=== PATIENT | male | born 1950 | race Caucasian/White ===

== ENCOUNTER → 2018-06-15 | Outpatient (CLI) | payer MEDICARE, OTHER ==
--- NOTE | 2018-06-15 11:33 | KCIC ---
SMALL BOWEL SERIES History: Lower abdominal pain for 3 months Comparison: None. Findings: Small bowel examination was performed. There was normal transit of contrast through the small bowel, seen in the ascending colon at about 45 minutes. No definitive stricture was identified. No significant abnormality was identified of the terminal ileum. Fluoroscopy time: 1 minute 41 seconds, 3 images Impression: 1. No significant abnormality was identified. Electronically signed by: Armando Gonzales MD (06/15/2018 11:29 AM) [id number]
== END | disposition home or self-care (01) ==
LOC: KCIC 09:23
PROVIDERS: ATTEND Internal Medicine Gastroenterology
DX: R10.30 Lower abdominal pain, unspecified (principal)
CPT/HCPCS: 74250

== ENCOUNTER → 2018-06-22 | Outpatient (CLI) | payer MEDICARE, OTHER ==
[~2018-06-22] MED LIST: CONTRAST GIVEN. MC PRN; IOHEXOL 300 MG/ML 100ML VIAL. IV ONE
--- NOTE | 2018-06-22 10:29 | RAD ---
EXAM: CT Angiogram Abdomen and Pelvis with IV contrast CLINICAL HISTORY: Persistent LLQ PAIN INJ COMPARISON: none TECHNIQUE: Helical CT of the abdomen and pelvis was performed following the administration of intravenous contrast. Oral contrast was administered. Axial, coronal and sagittal reformatted images were generated. PQRS compliance statement - One or more of the following individualized dose reduction techniques were utilized for this study: 1. Automated exposure control 2. Adjustment of the mA and/or kV according to patient size 3. Use of iterative reconstruction technique FINDINGS: CT angiogram: The visualized portions of the thoracic aorta are normal in caliber. The abdominal aorta is also normal in caliber throughout with intermittent no other scarring calcifications. No aortic dissection. 2 left renal arteries and 2 right renal arteries are widely patent at their origins. The left hepatic artery appears to originate directly from the aorta. The splenic artery and left gastric artery originate from celiac trunk. The right hepatic artery is replaced originating from the SMA. These are all widely patent. The RACHEL is also widely patent. The common iliac, internal and external iliac and proximal femoral arteries are widely patent. Lower chest: Linear opacities in the bilateral lower lobes likely scarring/atelectasis. No lobar consolidation. Abdomen and Pelvis: No focal liver lesion. Mild diffuse hepatic hypoattenuation may be seen with fatty infiltration, with focal fatty sparing at the gallbladder fossa. Spleen is unremarkable. Adrenal glands are normal. Gallbladder is normal. No biliary ductal dilatation. Incidentally noted congenitally short pancreas, otherwise unremarkable. Symmetric nephrograms. No focal renal lesion. No hydronephrosis. Of note, there is mild medial deviation of the ureters (left greater than right), possibly physiologic for this patient. Bladder is mildly distended, with mild thickening of the bladder wall, possibly from chronic urinary retention although cystitis may have similar appearance. Prostate is enlarged measuring 6.2 cm in transverse dimension. No abdominal or pelvic ascites. Moderate colonic stool content is seen. Extensive colonic diverticulosis is seen within the sigmoid colon. Mild fat infiltration and mesenteric engorgement is seen in this region, may be seen with acute diverticulitis or colitis. Duodenal diverticulum is incidentally seen. Small lipoma is also seen within the duodenum. Small fat-containing. Local hernia is seen. Bones: Multilevel degenerative changes of the spine are noted. IMPRESSION: 1. Atherosclerotic calcifications of the aorta are seen without aneurysmal dilatation or dissection. 2. Mild fat infiltration is seen about the segment of colonic diverticulosis suspicious for diverticulitis. 3. Diffuse hepatic hypoattenuation may be seen with focal fatty infiltration. Focal fatty sparing at the gallbladder fossa 4. Fat-containing ventral abdominal hernia with mild associated fat infiltration may be symptomatic. 5. Mild thickening of the bladder wall with enlarged prostate, possibly from chronic urinary retention. Alternatively cystitis may result in similar appearance. Electronically signed by: Marques Dee MD (06/22/2018 10:25 AM) [id number]
== END | disposition home or self-care (01) ==
LOC: CT 08:09
PROVIDERS: ATTEND Internal Medicine Gastroenterology
DX: K57.30 Diverticulosis of large intestine without perforation or abscess without bleeding (principal); K57.10 Diverticulosis of small intestine without perforation or abscess without bleeding; K45.8 Other specified abdominal hernia without obstruction or gangrene; N40.0 Benign prostatic hyperplasia without lower urinary tract symptoms; I70.0 Atherosclerosis of aorta; Q62.61 Deviation of ureter
CPT/HCPCS: 74174; Q9967